=== PATIENT | male | born 1955 | race Caucasian/White ===

== ENCOUNTER 2016-12-09 | Emergency (ER) | payer BC ==
--- NOTE | 2016-12-09 00:13 | EDM.PDOC ---
ED HPI GENERAL MEDICAL PROBLEM - General Chief Complaint: Chest Pain Stated Complaint: CHEST PAIN Time Seen by Provider: 12/09/16 00:13 Source of Information: Reports: Patient History Limitations: Reports: No Limitations - History of Present Illness INITIAL COMMENTS - FREE TEXT/NARRATIVE: 60-year-old male presents to the ED for evaluation of central chest pressure discomfort. Patient has a chronic issue with pain in his mid thoracic vertebra from arthritic changes and degenerative disc disease. He states he gets pain in this area between his shoulder blades intermittently and usually settles down with time and massage. He has had previous steroid injections in the past but gave that up about 6 months ago as was no longer helping. About 8:30 last night pain started in his mid back and then seem to radiate around the right costal margin and into the central chest. Associated burping and belching but no nausea or vomiting. Is rated as 8 out of 10 in no position is comfortable. Concern arose about possibility of heart disease and therefore he came to the ED. He is a smoker. States he has a mild cough no fever or chills. He did take some baby aspirins at home before coming to the ED. He has no known heart disease. ECG done by triage nurse shows sinus rhythm at 65 minute. There are nonspecific T-wave changes with flattening in 3 and aVF. There are no signs of ischemia. Considered a normal ECG Onset: Sudden Onset Date: 12/08/16 Onset Time: 20:30 Duration: Hour(s): Location: Reports: Chest, Back (Mid back between the shoulder blades. This is a chronic area of pain that often radiates around the right costal margin into his chest. Usually it settles with time and massage but it did not tonight.) Quality: Reports: Ache, Pressure Severity: Moderate (Rates the pain is 8 out of 10. No position is comfortable) Improves with: Reports: None Worsens with: Reports: None Context: Denies: Activity, Exercise, Lifting, Sick Contact, Trauma, Other Associated Symptoms: Reports: Chest Pain (Central heaviness in his midchest.), Other (Burping and belching try to get rid relief of the discomfort). Denies: Diaphoresis, Fever/Chills, Headaches, Loss of Appetite, Malaise, Nausea/Vomiting , Rash, Seizure, Shortness of Breath, Syncope, Weakness Treatments BRAKE RIDER: Reports: Aspirin (Took 2 baby aspirins at home tonight.) Chest Pain Score (Numeric/FACES): 9 - Related Data Allergies Allergy/AdvReac Type Severity Reaction Status Date / Time morphine Allergy Stomach Verified 12/09/16 00:10 Upset propoxyphene [From Darvon] Allergy Stomach Verified 12/09/16 00:10 Upset Home Meds: Home Meds Doxazosin [Cardura] 2 mg PO DAILY 12/09/16 [History] Furosemide 40 mg PO DAILY 12/09/16 [History] Losartan [Cozaar] 50 mg PO DAILY 12/09/16 [History] Potassium Chloride 20 meq PO DAILY 12/09/16 [History] amLODIPine [Norvasc] 10 mg PO DAILY 12/09/16 [History] Past Medical History Cardiovascular History: Reports: Hypertension Genitourinary History: Reports: BPH Musculoskeletal History: Reports: Back Pain, Chronic (Due to degenerative arthritis in his mid back and degenerative disc disease.), Osteoarthritis - Past Surgical History Neurological Surgical History: Reports: Spinal Fusion (L5-S1 fusion in the past. ) Social & Family History - Tobacco Use Smoking Status *Q: Current Every Day Smoker Tobacco Use Within Last Twelve Months: Cigarettes ED ROS GENERAL - Review of Systems Review Of Systems: See Below Constitutional: Reports: Other (Patient had hamburgers with cheese for supper.) . Denies: Fever, Chills, Malaise, Weakness, Fatigue, Night Sweats, Diaphoresis , Decreased Appetite, Weight Loss HEENT: Reports: No Symptoms Respiratory: Reports: No Symptoms Cardiovascular: Reports: Chest Pain. Denies: Blood Pressure Problem, Claudication, Dyspnea on Exertion, Edema, Lightheadedness, Orthopnea, Palpitations Endocrine: Reports: No Symptoms GI/Abdominal: Reports: Abdominal Pain (Some pain in the epigastrium that seems to radiate up into the central chest.). Denies: Constipation, Diarrhea, Decreased Appetite, Difficulty Swallowing, Distension, Flatus, Hematemesis, Hematochezia : Reports: No Symptoms Musculoskeletal: Reports: Back Pain (Tyrel G degenerative arthritis and degenerative disc disease mid back.) Skin: Reports: No Symptoms Neurological: Reports: No Symptoms Psychiatric: Reports: No Symptoms Hematologic/Lymphatic: Reports: No Symptoms Immunologic: Reports: No Symptoms ED EXAM, GENERAL - Physical Exam Exam: See Below Exam Limited By: No Limitations General Appearance: Alert, WD/WN, Anxious (Appears to be uncomfortable as well.) , Mild Distress Neck: Normal Inspection, Supple, Non-Tender, Full Range of Motion. No: Lymphadenopathy (L), Lymphadenopathy (R) Respiratory/Chest: No Respiratory Distress, Lungs Clear, Normal Breath Sounds, No Accessory Muscle Use Cardiovascular: Normal Peripheral Pulses, Regular Rate, Rhythm, No Edema, No Gallop, No Murmur Peripheral Pulses: 3+: Radial (R), Posterior Tibial (L), Posterior Tibial (R), Dorsalis Pedis (L), Dorsalis Pedis (R) GI/Abdominal: Normal Bowel Sounds, Soft, No Organomegaly, No Mass, Pelvis Stable , Guarding (Mild right upper quadrant with a positive Miranda's sign.), Tender ( Right upper quadrant abdomen.), Abnormal Bowel Sounds (Quiesced sent bowel sounds.). No: Distended, Rigid, Rebound, Hernia Back Exam: Normal Inspection, Vertebral Tenderness Extremities: Normal Inspection (Between the shoulder blades thoracic 67 level.) , Normal Range of Motion, Non-Tender, No Pedal Edema Neurological: Alert, Oriented, CN II-XII Intact, Normal Cognition, Normal Gait Psychiatric: Normal Affect, Normal Mood Skin Exam: Warm, Dry, Intact, Normal Color, No Rash EKG INTERPRETATION EKG Date: 12/09/16 Time: 00:15 Rhythm: NSR Rate (Beats/Min): 60 [place]: Normal P-Wave: Present QRS: Normal ST-T: Other (T-wave flattening in leads 3 and aVF which is nonspecific.) QT: Prolonged (Mildly prolonged.) EKG Interpretation Comments: Within normal limits. No signs of ischemia Course - Vital Signs Last Recorded V/S: Last Vital Signs Temp 36.8 C 12/09/16 00:06 Pulse 60 12/09/16 01:35 Resp 10 L 12/09/16 01:35 BP 118/80 12/09/16 01:30 Pulse Ox 94 L 12/09/16 01:35 - Orders/Labs/Meds Orders: Active Orders 24 hr Category Date Time Status EKG Documentation Completion [RC] STAT Care 12/09/16 00:20 Active Abdomen 1V Flat [CR] Stat Exams 12/09/16 00:20 Taken Chest 1V Frontal [CR] Stat Exams 12/09/16 00:19 Taken TSH [CHEM] Stat Lab 12/09/16 00:10 Received Ketorolac [Toradol] Med 12/09/16 00:45 Active 30 mg IVPUSH ONETIME Sodium Chloride 0.9% [Normal Saline] 1,000 ml Med 12/09/16 00:30 Active IV ASDIRECTED Medication Orders Sodium Chloride (Normal Saline) 1,000 mls @ 150 mls/hr IV ASDIRECTED AMI Last Admin: 12/09/16 00:26 Dose: 150 mls/hr Ketorolac Tromethamine (Toradol) 30 mg IVPUSH ONETIME AMI Last Admin: 12/09/16 01:29 Dose: 30 mg Labs: Laboratory Tests 12/09/16 12/09/16 12/09/16 Range/Units 00:10 00:10 00:10 WBC 9.25 H (4.23-9.07) K/mm3 RBC 4.64 (4.63-6.08) M/mm3 Hgb 14.2 (13.7-17.5) gm/L Hct 42.3 (40.1-51.0) % MCV 91.2 (79.0-92.2) fl MCH 30.6 (25.7-32.2) pg MCHC 33.6 (32.2-35.5) g/dl RDW Std Deviation 46.9 H (35.1-43.9) fL Plt Count 224 (163-337) K/mm3 MPV 10.0 (9.4-12.3) fl Neutrophils % (Manual) 52 (40-60) % Band Neutrophils % 0 (0-10) % Lymphocytes % (Manual) 41 H (20-40) % Atypical Lymphs % 0 % Monocytes % (Manual) 5 (2-10) % Eosinophils % (Manual) 2 (0.8-7.0) % Basophils % (Manual) 0 L (0.2-1.2) Platelet Estimate Adequate RBC Morph Comment Normal Sodium 139 (136-145) mEq/L Potassium 3.9 (3.5-5.1) mEq/L Chloride 103 (98-107) mEq/L Carbon Dioxide 26 (21-32) mEq/L Anion Gap 13.9 (5-15) BUN 23 H (7-18) mg/dL Creatinine 0.9 (0.7-1.3) mg/dL Est Cr Clr Drug Dosing TNP Estimated GFR (MDRD) > 60 (>60) mL/min BUN/Creatinine Ratio 25.6 H (14-18) Glucose 113 H (74-106) mg/dL Calcium 9.3 (8.5-10.1) mg/dL Total Bilirubin 0.5 (0.2-1.0) mg/dL AST 23 (15-37) U/L ALT 37 (16-63) U/L Alkaline Phosphatase 70 (46-116) U/L Creatine Kinase 448 H (39-308) U/L CK-MB (CK-2) 5.5 H (0-3.6) ng/ml Troponin I < 0.017 (0.00-0.056) ng/mL C-Reactive Protein < 0.2 (<1.0) mg/dL Total Protein 7.8 (6.4-8.2) g/dl Albumin 4.3 (3.4-5.0) g/dl Globulin 3.5 gm/dL Albumin/Globulin Ratio 1.2 (1-2) Amylase 46 (25-115) U/L Meds: Medications Generic Name Dose Route Start Last Admin Trade Name Freq PRN Reason Stop Dose Admin Sodium Chloride 1,000 mls @ 150 mls/hr 12/09/16 00:30 12/09/16 00:26 Normal Saline IV 150 mls/hr ASDIRECTED AMI Administration Ketorolac Tromethamine 30 mg 12/09/16 00:45 12/09/16 01:29 Toradol IVPUSH 30 mg ONETIME AMI Administration Discontinued Medications Generic Name Dose Route Start Last Admin Trade Name Freq PRN Reason Stop Dose Admin Hydromorphone HCl 0.5 mg 12/09/16 00:19 12/09/16 00:27 Dilaudid IVPUSH 12/09/16 00:20 0.5 mg ONETIME ONE Administration Hydromorphone HCl 0.5 mg 12/09/16 01:21 12/09/16 01:27 Dilaudid IVPUSH 12/09/16 01:22 0.5 mg ONETIME ONE Administration Metoclopramide HCl 10 mg 12/09/16 00:19 12/09/16 00:26 Reglan IVPUSH 12/09/16 00:20 10 mg ONETIME ONE Administration - Radiology Interpretation Free Text/Narrative:: 60-year-old male presents to the ED with us central mid back pain that radiates through to his central chest and around the right costal margin. He has chronic back pain due to degenerative disc disease and facet joint arthritis in his mid back for many years. His usually when the pain comes on he is able to massage her doctor didn't settle down but tonight it would not settle. Started about 4 hours ago. Central chest heaviness with associated burping and belching with no nausea or vomiting. States no position is comfortable. No previous abdominal surgery. Examination reveals clear lung العلي heart was sinus no murmurs identified ECG is normal without any signs of ischemia. Abdomen is firm to palpation and slightly tympanitic to percussion. He is tender right upper quadrant with a positive Miranda's sign suggestive of possible biliary colic. Plan IV normal saline at 150 mils per hour. Will give Dilaudid 0.5 mg IV with Toradol 30 mg IV and Reglan 10 mg IV for pain relief. X-ray of the chest times one view and one view of the abdomen to be done. Routine labs to include a serum amylase. - Re-Assessments/Exams Free Text/Narrative Re-Assessment/Exam: 12/09/16 01:01 labs reveal a normal white count at 9.25 with 52% neutrophils and no bands. Hemoglobin is 14.2 with hematocrit of 42.3 platelets 224,000. Chemistry shows a sodium of 139 potassium of 3.9. Anion gap is normal at 13.9 creatinine is 0.9. Glucose 113 CK-MB fraction is elevated at 5.5 troponin is normal at 0.017. Amylase is 46. I therefore did order a total CPK. X-rays are being done at this time. 12/09/16 01:22 total CPK is elevated at 443. Bedside ultrasound performed reveals a normal-appearing gallbladder without any thickening of the wall or pericholecystic fluid. No stones were identified. Pain is still's of 6 or 7 out of 10. I will repeat Dilaudid 0.5 mg IV. It appears the pain is coming from his back as he suspected. Chest x-ray and abdominal films are normal. I have no reason for him to have an elevated CPK level. I will have a TSH level done. 12/09/16 01:24 Departure - Departure Time of Disposition: 01:25 Disposition: Home, Self-Care 01 Condition: Fair Clinical Impression: Non-cardiac chest pain Degenerative joint disease of thoracic spine Qualifiers: Spinal osteoarthritis complication: with radiculopathy Qualified Code(s): M47.24 - Other spondylosis with radiculopathy, thoracic region Instructions: Nonspecific Chest Pain, [id number], Degenerative Disk Disease Referrals: Rain Carlisle MD [Primary Care Provider] - Forms: ED Department Discharge Additional Instructions: Evaluation the emergency room tonight in regards to development of central back pain which shoots peers quite often but failed to settle down and was much more intense than what you've experienced in the past. It seemed to radiate around the right costal margin her chest wall into the central chest. This therefore became worrisome for possible cardiac involvement. ECG proved to be completely normal chest x-ray was normal lumbar Laboratory workup also proved to be normal in terms of cardiac markers and liver function. Bedside ultrasound of the gallbladder shows no stones or thickening of gallbladder wall to suggest its involvement in your pain. You're therefore given Dilaudid 0.5 mg IV with Toradol 30 mg IV for initial pain relief and Dilaudid 0.5 mg was repeated after the gallbladder ultrasound. Pain appears to be coming from the degenerative arthritis in the mid thoracic spine. Follow-up with your personal care physician if any further problems occur. - My Orders Last 24 Hours: My Active Orders 12/09/16 00:10 TSH [CHEM] Stat 12/09/16 00:19 Chest 1V Frontal [CR] Stat 12/09/16 00:20 EKG Documentation Completion [RC] STAT Abdomen 1V Flat [CR] Stat 12/09/16 00:30 Sodium Chloride 0.9% [Normal Saline] 1,000 ml IV ASDIRECTED 12/09/16 00:45 Ketorolac [Toradol] 30 mg IVPUSH ONETIME - Assessment/Plan Last 24 Hours: My Active Orders 12/09/16 00:10 TSH [CHEM] Stat 12/09/16 00:19 Chest 1V Frontal [CR] Stat 12/09/16 00:20 EKG Documentation Completion [RC] STAT Abdomen 1V Flat [CR] Stat 12/09/16 00:30 Sodium Chloride 0.9% [Normal Saline] 1,000 ml IV ASDIRECTED 12/09/16 00:45 Ketorolac [Toradol] 30 mg IVPUSH ONETIME
[2016-12-09] MEDS ORDERED: HYDROmorphone 0.5 MG/0.5 ML Syringe IVPUSH ONE ×2 (00:19→01:21)
[2016-12-09] MEDS ORDERED: Metoclopramide 10 MG/2 ML SDV IVPUSH ONE (00:19)
[2016-12-09] MEDS ORDERED: Sodium Chloride 0.9% 1,000 ML IV SCH (00:30)
[2016-12-09] MEDS ORDERED: Ketorolac 30 MG/ML SDV IVPUSH SCH (00:45)
[2016-12-09 01:39] VITALS: BP 118/80
--- NOTE | 2016-12-09 07:01 | CR ---
Abdomen: Supine view of the abdomen was obtained. Comparison: No previous study. Previous surgery identified at L5-S1. Increased density is noted within the lateral aspect of the iliac crest on the left side most likely due to previous trauma. Endplate spurring noted laterally at L1-L2. Bowel gas pattern appears normal. No abnormal calcifications or discrete soft tissue abnormality is identified. Impression: 1. Bony findings which are felt to be incidental. Supine abdominal study is otherwise unremarkable. Diagnostic code #2
--- NOTE | 2016-12-09 07:01 | CR ---
Chest: Frontal view of the chest was obtained. Comparison: Previous chest x-ray of 03/25/13. Heart size and mediastinum are within normal limits for technique. Lungs are clear. Bony structures are grossly intact. Impression: 1. Nothing acute is appreciated on frontal chest x-ray. Diagnostic code #1
== END 2016-12-09 01:44 | disposition home or self-care (01) ==
LOC: JD.ED
DX: R07.89 Other chest pain (principal); M47.24 Other spondylosis with radiculopathy, thoracic region; I10 Essential (primary) hypertension; Z98.1 Arthrodesis status; F17.210 Nicotine dependence, cigarettes, uncomplicated; Z79.899 Other long term (current) drug therapy; Z88.5 Allergy status to narcotic agent; Z88.8 Allergy status to other drugs, medicaments and biological substances
CPT/HCPCS: 36415; 71010; 74000; 80053; 82150; 82550; 82553; 84443; 84484; 85025; 86140; 93005; 96361; 96374; 96375; 96376; 99285; J1170; J1885; J2765; J7040; 93010

== ENCOUNTER 2017-06-24 23:56 | Emergency (ER) | payer BC ==
[2017-06-25 00:03] VITALS: BP 169/74
[2017-06-25] MEDS ORDERED: Albuterol/Ipratropium 3.0-0.5 MG/3 ML Neb Soln NEB ONE (00:20)
--- NOTE | 2017-06-25 00:41 | EDM.PDOC ---
ED HPI GENERAL MEDICAL PROBLEM - General Chief Complaint: Respiratory Problem Stated Complaint: COUGH CONGESTION SOB Time Seen by Provider: 06/25/17 00:13 Source of Information: Reports: Patient History Limitations: Reports: No Limitations - History of Present Illness INITIAL COMMENTS - FREE TEXT/NARRATIVE: The patient presents with a cough. This has been going on for about 4 weeks. Over a week ago he went to the walk in clinic and he was given an antibiotic, cough medicine and some prednisone. The prednisone burned his tongue so he stopped taking it. He finished the antibiotics but he still has a cough. He has no fever or chills any more. He does smoke and he has mild COPD. He feels like he cannot but the mucus up. He has no chest pain. He does not feel real short of breath. He has no abdominal pain, nausea or vomiting. Onset: Gradual Duration: Week(s): (4) Severity: Moderate Improves with: Reports: None Worsens with: Reports: None Associated Symptoms: Reports: Cough, Shortness of Breath. Denies: Chest Pain, Fever/Chills, Nausea/Vomiting Back Pain Score (Numeric/FACES): 7 - Related Data Allergies Allergy/AdvReac Type Severity Reaction Status Date / Time morphine Allergy Stomach Verified 12/09/16 00:10 Upset propoxyphene [From Darvon] Allergy Stomach Verified 12/09/16 00:10 Upset Home Meds: Home Meds Doxazosin [Cardura] 2 mg PO DAILY 12/09/16 [History] Furosemide 40 mg PO DAILY 12/09/16 [History] Losartan [Cozaar] 50 mg PO DAILY 12/09/16 [History] Potassium Chloride 20 meq PO DAILY 12/09/16 [History] amLODIPine [Norvasc] 10 mg PO DAILY 12/09/16 [History] Benzonatate 200 mg PO TID PRN 06/25/17 [History] Doxycycline [Vibramycin] 100 mg PO BID #14 cap 06/25/17 [Rx] predniSONE [Prednisone] 5 mg PO DAILY 06/25/17 [History] Past Medical History Cardiovascular History: Reports: Hypertension Gastrointestinal History: Reports: GERD Genitourinary History: Reports: BPH Musculoskeletal History: Reports: Back Pain, Chronic, Osteoarthritis - Past Surgical History GI Surgical History: Reports: Hernia, Abdominal Neurological Surgical History: Reports: Spinal Fusion Social & Family History - Family History Family Medical History: Noncontributory - Tobacco Use Smoking Status *Q: Current Every Day Smoker Years of Tobacco use: 40 Packs/Tins Daily: 0.5 - Caffeine Use Caffeine Use: Reports: None - Recreational Drug Use Recreational Drug Use: No ED ROS GENERAL - Review of Systems Review Of Systems: See Below Constitutional: Reports: No Symptoms HEENT: Reports: Other (Congestion) Respiratory: Reports: Shortness of Breath, Cough, Sputum Cardiovascular: Reports: No Symptoms Endocrine: Reports: No Symptoms GI/Abdominal: Reports: No Symptoms : Reports: No Symptoms Musculoskeletal: Reports: No Symptoms ED EXAM, GENERAL - Physical Exam Exam: See Below Exam Limited By: No Limitations General Appearance: Alert, No Apparent Distress Ears: Normal External Exam Nose: Normal Inspection Head: Atraumatic, Normocephalic Neck: Normal Inspection Respiratory/Chest: No Respiratory Distress, Decreased Breath Sounds, Wheezing ( Mild) Cardiovascular: Regular Rate, Rhythm, No Edema, No Murmur GI/Abdominal: Soft, Non-Tender, No Organomegaly, No Mass Back Exam: Other (Circular areas of ecchymosis) Extremities: Normal Inspection Course - Vital Signs Last Recorded V/S: Last Vital Signs Temp 99.1 F 06/25/17 00:00 Pulse 85 06/25/17 00:00 Resp 18 06/25/17 00:00 BP 169/74 H 06/25/17 00:00 Pulse Ox 93 L 06/25/17 00:31 - Orders/Labs/Meds Orders: Active Orders 24 hr Category Date Time Status RT Aerosol Therapy [RC] ASDIRECTED Care 06/25/17 00:20 Active CXR [Chest 2V] [CR] Stat Exams 06/25/17 00:20 Taken Meds: Medications Discontinued Medications Generic Name Dose Route Start Last Admin Trade Name Freq PRN Reason Stop Dose Admin Albuterol/Ipratropium 3 ml 06/25/17 00:20 06/25/17 00:30 Duoneb 3.0-0.5 Mg/3 Ml NEB 06/25/17 00:21 3 ml ONETIME ONE Administration - Re-Assessments/Exams Free Text/Narrative Re-Assessment/Exam: 06/25/17 00:44 I ordered a CXR and duoneb. 06/25/17 01:02 His CXR shows an infiltrate in the left lower lung. I will get him on some doxycycline and phenergain with codeine. Departure - Departure Time of Disposition: 01:05 Disposition: Home, Self-Care 01 Condition: Good Clinical Impression: Pneumonia Qualifiers: Pneumonia type: due to unspecified organism Laterality: left Lung location: lower lobe of lung Qualified Code(s): J18.1 - Lobar pneumonia, unspecified organism - Discharge Information Prescriptions: Doxycycline [Vibramycin] 100 mg PO BID #14 cap Referrals: Rain Carlisle MD [Primary Care Provider] - 1 Week Forms: ED Department Discharge Additional Instructions: Take the doxycycline 1 pill 2 times per day for 7 days. Take phenergain with codeine every 6 hours as needed for coughing. Please return if you are worse. - My Orders Last 24 Hours: My Active Orders 06/25/17 00:20 RT Aerosol Therapy [RC] ASDIRECTED CXR [Chest 2V] [CR] Stat - Assessment/Plan Last 24 Hours: My Active Orders 06/25/17 00:20 RT Aerosol Therapy [RC] ASDIRECTED CXR [Chest 2V] [CR] Stat
--- NOTE | 2017-06-25 08:12 | CR ---
Chest: Two views of the chest were obtained. Comparison: Prior chest x-ray of 12/09/16 and chest x-ray of 03/25/13. Heart size and mediastinum are normal. Increased central lung markings are seen which are more prominent than on prior study presumably due to bronchitis. Lungs otherwise are clear. Bony structures are unremarkable for the patient's age. Impression: 1. Possible bronchitis. Diagnostic code #3
== END 2017-06-25 01:15 | disposition home or self-care (01) ==
LOC: JD.ED 23:56
DX: J18.9 Pneumonia, unspecified organism (principal); I10 Essential (primary) hypertension; F17.210 Nicotine dependence, cigarettes, uncomplicated; Z88.5 Allergy status to narcotic agent; Z88.8 Allergy status to other drugs, medicaments and biological substances; Z79.899 Other long term (current) drug therapy
CPT/HCPCS: 71046; 71046-26; 94640; 99283; 99284-25

== ENCOUNTER 2017-06-26 09:49 | Emergency (ER) | payer BC ==
[2017-06-26] MEDS ORDERED: Sodium Chloride 0.9% 10 ML Syringe FLUSH PRN (10:41)
[2017-06-26] MEDS ORDERED: Albuterol/Ipratropium 3.0-0.5 MG/3 ML Neb Soln NEB ONE ×3 (10:42→13:27)
[2017-06-26] MEDS ORDERED: cefTRIAXone 2 GM in Sodium Chloride 0.9% 100 ML IV ONE (10:43)
--- NOTE | 2017-06-26 10:48 | EDM.PDOC ---
<Kelsey Guzman - Last Filed: 06/26/17 11:57> ED HPI GENERAL MEDICAL PROBLEM - General Chief Complaint: Respiratory Problem Stated Complaint: PNEUMONIA Time Seen by Provider: 06/26/17 10:25 Source of Information: Reports: Patient History Limitations: Reports: No Limitations - History of Present Illness INITIAL COMMENTS - FREE TEXT/NARRATIVE: Patient is a 61 YO male who presents for continues shortness of breath and cough. He was seen and evaluated here in the ER yesterday. He was diagnosed with pneumonia and placed on doxycycline. He has also bee doing nebulizer treatments at home. He has a home pulse ox which has been showing oxygen saturations around 88%. He was going to follow-up with his primary but they recommended he return here for another evaluation. He states he tried sleeping in his bed last night but had to go the chair due to shortness of breath. He feels like he has developed a fever since being here yesterday but he has no recorded fever. He denies nausea, vomiting or diarrhea. Generalized Pain Score (Numeric/FACES): 8 - Related Data Allergies Allergy/AdvReac Type Severity Reaction Status Date / Time morphine Allergy Stomach Verified 06/26/17 09:58 Upset propoxyphene [From Darvon] Allergy Stomach Verified 06/26/17 09:58 Upset Home Meds: Home Meds Doxazosin [Cardura] 2 mg PO DAILY 12/09/16 [History] Furosemide 40 mg PO DAILY 12/09/16 [History] Losartan [Cozaar] 50 mg PO DAILY 12/09/16 [History] Potassium Chloride 20 meq PO DAILY 12/09/16 [History] amLODIPine [Norvasc] 10 mg PO DAILY 12/09/16 [History] Benzonatate 200 mg PO TID PRN 06/25/17 [History] Doxycycline [Vibramycin] 100 mg PO BID #14 cap 06/25/17 [Rx] Albuterol Sulfate 2.5 mg IH Q6HR #20 ampule 06/26/17 [Rx] Prednisone [IJD: predniSONE] 40 mg PO WITHBREAKFAST #10 tab 06/26/17 [Rx] Past Medical History Cardiovascular History: Reports: Hypertension Respiratory History: Reports: COPD Gastrointestinal History: Reports: GERD Genitourinary History: Reports: BPH Musculoskeletal History: Reports: Back Pain, Chronic, Osteoarthritis Neurological History: Reports: Other (See Below) Other Neuro History: ruptured disc - Past Surgical History GI Surgical History: Reports: Hernia, Abdominal Neurological Surgical History: Reports: Spinal Fusion Social & Family History - Family History Family Medical History: Noncontributory - Tobacco Use Smoking Status *Q: Current Every Day Smoker Years of Tobacco use: 45 Packs/Tins Daily: 0.7 Second Hand Smoke Exposure: No - Caffeine Use Caffeine Use: Reports: Coffee, Soda - Recreational Drug Use Recreational Drug Use: No ED ROS GENERAL - Review of Systems Review Of Systems: See Below Constitutional: Reports: Weakness, Fatigue HEENT: Reports: No Symptoms Respiratory: Reports: Shortness of Breath, Wheezing, Cough. Denies: Pleuritic Chest Pain, Hemoptysis Cardiovascular: Reports: No Symptoms GI/Abdominal: Reports: No Symptoms Skin: Reports: No Symptoms Neurological: Reports: No Symptoms Psychiatric: Reports: No Symptoms ED EXAM, GENERAL - Physical Exam Exam: See Below Exam Limited By: No Limitations General Appearance: Alert, WD/WN, No Apparent Distress Eye Exam: Bilateral Eye: EOMI, PERRL Respiratory/Chest: No Respiratory Distress, No Accessory Muscle Use, Wheezing ( expiratory wheezing). No: Respiratory Distress, Crackles, Splinting Cardiovascular: Normal Peripheral Pulses, Regular Rate, Rhythm, No Edema, No Murmur Neurological: Alert, Oriented, CN II-XII Intact, Normal Cognition, No Motor/ Sensory Deficits Psychiatric: Normal Affect, Normal Mood Skin Exam: Warm, Dry, Intact, Normal Color, No Rash Course - Vital Signs Last Recorded V/S: Last Vital Signs Temp 98.8 F 06/26/17 09:55 Pulse 109 H 06/26/17 09:55 Resp 24 H 06/26/17 09:55 BP 145/75 H 06/26/17 09:55 Pulse Ox 93 L 06/26/17 13:27 - Orders/Labs/Meds Orders: Active Orders 24 hr Category Date Time Status Cardiac Monitoring [RC] . DIRECTED Care 06/26/17 10:41 Active Oxygen Therapy [RC] PRN Care 06/26/17 10:41 Active Peripheral IV Care [RC] . DIRECTED Care 06/26/17 10:42 Active RT Aerosol Therapy [RC] ASDIRECTED Care 06/26/17 10:42 Active RT Aerosol Therapy [RC] ASDIRECTED Care 06/26/17 12:13 Active RT Aerosol Therapy [RC] ASDIRECTED Care 06/26/17 13:27 Active INFLUENZA A+B AG SCREEN [RM] Stat Lab 06/26/17 10:30 Ordered Sodium Chloride 0.9% [Saline Flush] Med 06/26/17 10:41 Active 10 ml FLUSH ASDIRECTED PRN Peripheral IV Insertion Adult [OM.PC] Stat Oth 06/26/17 10:41 Ordered Medication Orders Sodium Chloride (Saline Flush) 10 ml FLUSH ASDIRECTED PRN PRN Reason: Keep Vein Open Last Admin: 06/26/17 11:15 Dose: 10 ml Labs: Laboratory Tests 06/26/17 06/26/17 Range/Units 11:15 11:15 WBC 6.85 (4.23-9.07) K/mm3 RBC 4.40 L (4.63-6.08) M/mm3 Hgb 13.2 L (13.7-17.5) gm/L Hct 40.1 (40.1-51.0) % MCV 91.1 (79.0-92.2) fl MCH 30.0 (25.7-32.2) pg MCHC 32.9 (32.2-35.5) g/dl RDW Std Deviation 47.3 H (35.1-43.9) fL Plt Count 186 (163-337) K/mm3 MPV 9.9 (9.4-12.3) fl Neut % (Auto) 57.6 (34.0-67.9) % Lymph % (Auto) 27.6 (21.8-53.1) % Pershing % (Auto) 13.3 H (5.3-12.2) % Eos % (Auto) 0.9 (0.8-7.0) Baso % (Auto) 0.3 (0.1-1.2) % Neut # (Auto) 3.95 (1.78-5.38) K/mm3 Lymph # (Auto) 1.89 (1.32-3.57) K/mm3 Pershing # (Auto) 0.91 H (0.30-0.82) K/mm3 Eos # (Auto) 0.06 (0.04-0.54) K/mm3 Baso # (Auto) 0.02 (0.01-0.08) K/mm3 Sodium 136 (136-145) mEq/L Potassium 3.8 (3.5-5.1) mEq/L Chloride 99 (98-107) mEq/L Carbon Dioxide 28 (21-32) mEq/L Anion Gap 12.8 (5-15) BUN 15 (7-18) mg/dL Creatinine 1.0 (0.7-1.3) mg/dL Est Cr Clr Drug Dosing 77.57 mL/min Estimated GFR (MDRD) > 60 (>60) mL/min BUN/Creatinine Ratio 15.0 (14-18) Glucose 116 H (80-115) mg/dL Calcium 8.9 (8.5-10.1) mg/dL Total Bilirubin 0.6 (0.2-1.0) mg/dL AST 29 (15-37) U/L ALT 44 (16-63) U/L Alkaline Phosphatase 62 (46-116) U/L Total Protein 7.3 (6.4-8.2) g/dl Albumin 3.9 (3.4-5.0) g/dl Globulin 3.4 gm/dL Albumin/Globulin Ratio 1.2 (1-2) Meds: Medications Generic Name Dose Route Start Last Admin Trade Name Freq PRN Reason Stop Dose Admin Sodium Chloride 10 ml 06/26/17 10:41 06/26/17 11:15 Saline Flush FLUSH 10 ml ASDIRECTED PRN Administration Keep Vein Open Discontinued Medications Generic Name Dose Route Start Last Admin Trade Name Freq PRN Reason Stop Dose Admin Albuterol/Ipratropium 3 ml 06/26/17 10:42 06/26/17 11:08 Duoneb 3.0-0.5 Mg/3 Ml [facility] 06/26/17 10:43 3 ml ONETIME ONE Administration Albuterol/Ipratropium 3 ml 06/26/17 12:13 06/26/17 12:34 Duoneb 3.0-0.5 Mg/3 Ml NEB 06/26/17 12:14 3 ml ONETIME ONE Administration Albuterol/Ipratropium 3 ml 06/26/17 13:27 06/26/17 13:55 Duoneb 3.0-0.5 Mg/3 Ml NEB 06/26/17 13:28 3 ml ONETIME ONE Administration Ceftriaxone Sodium 2 gm/ 100 mls @ 100 mls/hr 06/26/17 10:43 06/26/17 11:23 Sodium Chloride IV 06/26/17 11:42 100 mls/hr ONETIME ONE Administration Methylprednisolone Sodium Succinate 125 mg 06/26/17 12:14 06/26/17 12:28 Solu-Medrol IVPUSH 06/26/17 12:15 125 mg ONETIME ONE Administration Departure - Departure Disposition: Home, Self-Care 01 Clinical Impression: COPD exacerbation, Hypoxia Pneumonia Qualifiers: Pneumonia type: due to unspecified organism Laterality: left Lung location: lower lobe of lung Qualified Code(s): J18.1 - Lobar pneumonia, unspecified organism - Discharge Information Prescriptions: Albuterol Sulfate 2.5 mg IH Q6HR #20 ampule Prednisone [IJD: predniSONE] 40 mg PO WITHBREAKFAST #10 tab Referrals: Rain Carlisle MD [Primary Care Provider] - 1 Week Forms: ED Department Discharge Additional Instructions: Try to stop smoking. Wear the oxygen to keep your oxygen saturations above 92% . Keep taking the doxycycline 2 times per day until gone. Take the prednisone 40mg daily for 5 days. You can do an albuterol neb every 4 to 6 hours as needed for shortness of breath. Please return if you are worse. - My Orders Last 24 Hours: My Active Orders 06/26/17 10:30 INFLUENZA A+B AG SCREEN [RM] Stat 06/26/17 10:41 Cardiac Monitoring [RC] . DIRECTED Oxygen Therapy [RC] PRN Sodium Chloride 0.9% [Saline Flush] 10 ml FLUSH ASDIRECTED PRN Peripheral IV Insertion Adult [OM.PC] Stat 06/26/17 10:42 Peripheral IV Care [RC] . DIRECTED RT Aerosol Therapy [RC] ASDIRECTED 06/26/17 12:13 RT Aerosol Therapy [RC] ASDIRECTED 06/26/17 13:27 RT Aerosol Therapy [RC] ASDIRECTED - Assessment/Plan Last 24 Hours: My Active Orders 06/26/17 10:30 INFLUENZA A+B AG SCREEN [RM] Stat 06/26/17 10:41 Cardiac Monitoring [RC] . DIRECTED Oxygen Therapy [RC] PRN Sodium Chloride 0.9% [Saline Flush] 10 ml FLUSH ASDIRECTED PRN Peripheral IV Insertion Adult [OM.PC] Stat 06/26/17 10:42 Peripheral IV Care [RC] . DIRECTED RT Aerosol Therapy [RC] ASDIRECTED 06/26/17 12:13 RT Aerosol Therapy [RC] ASDIRECTED 06/26/17 13:27 RT Aerosol Therapy [RC] ASDIRECTED <NicolasaelizabethTyrel Lanier - Last Filed: 06/26/17 14:04> ED HPI GENERAL MEDICAL PROBLEM - General Source of Information: Reports: Patient History Limitations: Reports: No Limitations - History of Present Illness Onset: Gradual Duration: Week(s): Severity: Moderate Improves with: Reports: None Worsens with: Reports: None Associated Symptoms: Reports: Cough, cough w sputum, Fever/Chills, Shortness of Breath. Denies: Chest Pain, Nausea/Vomiting Course - Re-Assessments/Exams Free Text/Narrative Re-Assessment/Exam: 06/26/17 13:49 I examined the patient myself and I agreed with Kelsey's assessment and plan. The patient was put on oxygen and he was given a treatment and solu-medrol 125mg IV. His CXR has improved from the other night. His WBC was normal at 6.85. The rest of his labs look good. He still had some wheezing so I ordered another duoneb. After that neb. I took his oxygen off and his oxygen saturations went down to 87% on room air. I feel he needs to be admitted, but the patient does not want to be admitted. I ordered another breathing treatment. I will keep him on the doxycycline and I will start him some steroid and nebs at home. I will keep him on the doxycycline. It appears his pneumonia is improving but he now has a COPD exacerabation. Departure - Departure Time of Disposition: 14:00 Condition: Good
[2017-06-26] MEDS ORDERED: methylPREDNISolone Sodium Succinate 125 MG/2 ML SDV IVPUSH ONE (12:14)
--- NOTE | 2017-06-26 13:02 | CR ---
Chest: Two views of the chest were obtained. Comparison: Prior chest x-ray of 06/25/17. Heart size and mediastinum are normal. Lungs are clear. Bony structures are unremarkable for the patient's age. Impression: 1. Nothing acute is appreciated on two-view chest x-ray. Diagnostic code #1
[2017-06-26 15:19] VITALS: BP 121/59
== END 2017-06-26 14:35 | disposition home or self-care (01) ==
LOC: JD.ED 09:49
DX: J44.1 Chronic obstructive pulmonary disease with (acute) exacerbation (principal); J18.9 Pneumonia, unspecified organism; R09.02 Hypoxemia; I10 Essential (primary) hypertension; F17.210 Nicotine dependence, cigarettes, uncomplicated; Z88.5 Allergy status to narcotic agent; Z88.8 Allergy status to other drugs, medicaments and biological substances; Z79.899 Other long term (current) drug therapy
CPT/HCPCS: 36415; 71046; 80053; 85025; 87804; 94640; 96365; 96375; 99285; J0696; J2930; J7030; J7050; 99284

== ENCOUNTER 2021-10-13 12:08 | Inpatient (IN) | payer MEDICARE, BC ==
[2021-10-13] MEDS ORDERED: Sodium Chloride 0.9% 10 ML Syringe FLUSH PRN ×2 (12:53→14:49)
[2021-10-13] MEDS ORDERED: Albuterol/Ipratropium 3.0-0.5 MG/3 ML Neb Soln NEB ONE ×2 (12:54→14:47)
[2021-10-13] MEDS ORDERED: methylPREDNISolone Sodium Succinate 125 MG/2 ML SDV IVPUSH ONE (12:55)
[2021-10-13 14:10] LABS: ESTIMATED GFR 95 mL/min (>60)
[2021-10-13] MEDS ORDERED: Iopamidol 755 Mg/ML 100 ML Bottle IVPUSH ONE (14:49)
[2021-10-13] MEDS ORDERED: Sodium Chloride 0.9% 100 ML IV SCH (15:00)
[2021-10-13] MEDS ORDERED: REMDESIVIR 200 MG in Sodium Chloride 0.9% 250 ML IV ONE (15:58)
[2021-10-13] MEDS ORDERED: cefTRIAXone 1 GM in Sodium Chloride 0.9% 100 ML IV ONE (16:08)
[2021-10-13] MEDS: Albuterol/Ipratropium 3.0-0.5 MG/3 ML Neb Soln NEB SCH (20:38)
[2021-10-13] MEDS ORDERED: Acetaminophen 325 MG Tab PO PRN (21:25)
[2021-10-13] MEDS ORDERED: Ondansetron 4 MG Tab.DIS PO PRN (21:25)
[2021-10-13] MEDS ORDERED: Magnesium Hydroxide 400 MG/5 ML Susp 30 ML Cup PO PRN (21:25)
[2021-10-13] MEDS ORDERED: Pantoprazole 40 MG Vial ONE (21:25)
[2021-10-13] MEDS ORDERED: Ibuprofen 400 MG Tab PO PRN (21:25)
[2021-10-13] MEDS ORDERED: Zolpidem 5 MG Tab PO PRN (21:25)
[2021-10-13] MEDS ORDERED: Pantoprazole 40 MG in Sodium Chloride 0.9% 100 ML IV ONE (22:00)
[2021-10-14] MEDS: Albuterol/Ipratropium 3.0-0.5 MG/3 ML Neb Soln NEB SCH ×4 (02:52→20:58)
[2021-10-14] MEDS ORDERED: Albuterol 0.083% 2.5 MG/3 ML Neb Soln NEB SCH (03:00)
[2021-10-14] MEDS: Furosemide 40 MG Tab PO SCH ×2 (06:08→13:43)
[2021-10-14 07:53] LABS: HEMOGLOBIN A1C 5.8 %
[2021-10-14] MEDS: Enoxaparin 40 MG/0.4 ML Syringe SUBCUT SCH (08:26)
[2021-10-14] MEDS: Potassium Chloride 20 MEQ Tab.ER PO SCH (08:27)
[2021-10-14] MEDS: Losartan 50 MG Tab PO SCH (08:27)
[2021-10-14] MEDS: amLODIPine 10 MG Tab PO SCH (08:28)
[2021-10-14] MEDS: Pantoprazole 40 MG Tab.CR PO SCH (08:28)
[2021-10-14] MEDS: Dexamethasone 6 MG TABLET PO SCH (08:28)
[2021-10-14] MEDS: Doxazosin 2 MG Tab PO SCH (08:28)
[2021-10-14] MEDS: Nicotine 7 MG/24 Hr Patch TRDERM SCH (08:29)
[2021-10-14] MEDS: cefTRIAXone 1 GM in Sodium Chloride 0.9% 100 ML IV SCH (15:42)
[2021-10-14] MEDS: REMDESIVIR 100 MG in Sodium Chloride 0.9% 250 ML IV SCH (18:02)
[2021-10-15] MEDS: Albuterol/Ipratropium 3.0-0.5 MG/3 ML Neb Soln NEB SCH ×4 (02:07→20:51)
[2021-10-15] MEDS: Furosemide 40 MG Tab PO SCH ×2 (05:44→14:23)
[2021-10-15] MEDS: Losartan 50 MG Tab PO SCH (09:25)
[2021-10-15] MEDS: amLODIPine 10 MG Tab PO SCH (09:26)
[2021-10-15] MEDS: Doxazosin 2 MG Tab PO SCH (09:28)
[2021-10-15] MEDS: Potassium Chloride 20 MEQ Tab.ER PO SCH (09:28)
[2021-10-15] MEDS: Pantoprazole 40 MG Tab.CR PO SCH (09:28)
[2021-10-15] MEDS: Dexamethasone 6 MG TABLET PO SCH (09:28)
[2021-10-15] MEDS: Nicotine 7 MG/24 Hr Patch TRDERM SCH (09:29)
[2021-10-15] MEDS: Enoxaparin 40 MG/0.4 ML Syringe SUBCUT SCH (09:30)
[2021-10-15] MEDS: cefTRIAXone 1 GM in Sodium Chloride 0.9% 100 ML IV SCH (15:47)
[2021-10-15] MEDS: REMDESIVIR 100 MG in Sodium Chloride 0.9% 250 ML IV SCH (18:39)
[2021-10-16] MEDS: Albuterol/Ipratropium 3.0-0.5 MG/3 ML Neb Soln NEB SCH ×2 (02:08→08:00)
[2021-10-16] MEDS: Furosemide 40 MG Tab PO SCH (05:49)
[2021-10-16] MEDS: Losartan 50 MG Tab PO SCH (08:23)
[2021-10-16] MEDS: amLODIPine 10 MG Tab PO SCH (08:24)
[2021-10-16] MEDS: Doxazosin 2 MG Tab PO SCH (08:24)
[2021-10-16] MEDS: Pantoprazole 40 MG Tab.CR PO SCH (08:24)
[2021-10-16] MEDS: Potassium Chloride 20 MEQ Tab.ER PO SCH (08:24)
[2021-10-16] MEDS: Dexamethasone 6 MG TABLET PO SCH (08:24)
[2021-10-16] MEDS: Enoxaparin 40 MG/0.4 ML Syringe SUBCUT SCH (08:28)
[2021-10-16] MEDS: Nicotine 7 MG/24 Hr Patch TRDERM SCH (08:28)
[2021-10-16] MEDS ORDERED: cefTRIAXone 1 GM in Sodium Chloride 0.9% 100 ML IV ONE (11:00)
[2021-10-16] MEDS ORDERED: REMDESIVIR 100 MG in Sodium Chloride 0.9% 250 ML IV ONE (12:00)
[2021-10-16 12:42] VITALS: BP 118/72; PULSE 69
== END 2021-10-16 13:25 | disposition home or self-care (01) | DRG 177 ==
LOC: JD.ED 12:08 → JD.MS 17:15
PROVIDERS: ADMIT Pediatrics; ATTEND Internal Medicine
PROC: XW033E5 Introduction of Remdesivir Anti-infective into Peripheral Vein, Percutaneous Approach, New Technology Group 5 (ICD-10-PCS; principal; 2021-10-13)
PROC: 3E0DX3Z Introduction of Anti-inflammatory into Mouth and Pharynx, External Approach (ICD-10-PCS; 2021-10-14)
DX: U07.1 COVID-19 (principal); J18.9 Pneumonia, unspecified organism; J12.82 Pneumonia due to coronavirus disease 2019; J96.90 Respiratory failure, unspecified, unspecified whether with hypoxia or hypercapnia; R09.02 Hypoxemia; J44.0 Chronic obstructive pulmonary disease with (acute) lower respiratory infection; J44.1 Chronic obstructive pulmonary disease with (acute) exacerbation; E78.00 Pure hypercholesterolemia, unspecified; M54.9 Dorsalgia, unspecified; G89.29 Other chronic pain; M19.90 Unspecified osteoarthritis, unspecified site; K21.9 Gastro-esophageal reflux disease without esophagitis; N40.0 Benign prostatic hyperplasia without lower urinary tract symptoms; M47.24 Other spondylosis with radiculopathy, thoracic region; F17.210 Nicotine dependence, cigarettes, uncomplicated; I10 Essential (primary) hypertension; Z88.5 Allergy status to narcotic agent; Z88.8 Allergy status to other drugs, medicaments and biological substances; Z79.899 Other long term (current) drug therapy
CPT/HCPCS: 36415; 71045; 71045-26; 71275; 71275-26; 80053; 82947; 83036; 83605; 83735; 83880; 84484; 85025; 85027; 85379; 85610; 85730; 86140; 87040; 93005; 94640; 94667; 94668; 94761; 94762; 99284; A9270-GY; C9113; J0696; J1650; J2930; J3490; J7050; J7620-GY; J8540; Q9967